=== PATIENT | female | born 1970 | race Caucasian/White ===

== ENCOUNTER 2016-08-01 07:35 | Emergency (ER) | payer SELFPAY ==
[2016-08-01] MEDS ORDERED: cefTRIAXone\\ROCEPHIN 1 GM VIAL ONE (08:04)
[2016-08-01] MEDS ORDERED: Lidocaine 1% 20 ML MDV ONE (08:04)
== END 2016-08-01 08:10 | disposition home or self-care (01) ==
LOC: NAV ERS 07:35
DX: J20.9 Acute bronchitis, unspecified (principal); F31.9 Bipolar disorder, unspecified; F17.210 Nicotine dependence, cigarettes, uncomplicated; Z79.891 Long term (current) use of opiate analgesic; Z79.899 Other long term (current) drug therapy
CPT/HCPCS: 96372; J0696; J2001

== ENCOUNTER 2016-10-01 12:29 | Emergency (ER) | payer SELFPAY ==
[2016-10-01] MEDS ORDERED: Ondansetron ODT 4 MG TAB ONE (13:00)
[2016-10-01] MEDS ORDERED: Cephalexin 250 MG CAP ONE (13:00)
== END 2016-10-01 13:28 | disposition home or self-care (01) ==
LOC: NAV ERS 12:29
DX: T63.461A Toxic effect of venom of wasps, accidental (unintentional), initial encounter (principal); L03.115 Cellulitis of right lower limb; M19.90 Unspecified osteoarthritis, unspecified site; F31.9 Bipolar disorder, unspecified; F17.210 Nicotine dependence, cigarettes, uncomplicated; Z79.899 Other long term (current) drug therapy
CPT/HCPCS: 99282; Q0162

== ENCOUNTER 2017-05-20 19:41 | Emergency (ER) | payer SELFPAY ==
[2017-05-20] MEDS ORDERED: HYDROcodone/Acetaminophen 10/325 mg Tablet ONE (19:57)
[2017-05-20] MEDS ORDERED: Amoxicillin/Potassium Clav 875 MG TAB ONE (19:57)
== END 2017-05-20 20:05 | disposition home or self-care (01) ==
LOC: NAV ERS 19:41
DX: K02.9 Dental caries, unspecified (principal); M19.90 Unspecified osteoarthritis, unspecified site; F31.9 Bipolar disorder, unspecified; F17.210 Nicotine dependence, cigarettes, uncomplicated; Z79.899 Other long term (current) drug therapy
CPT/HCPCS: 99283

== ENCOUNTER 2018-01-24 11:03 | Emergency (ER) | payer SELFPAY ==
[2018-01-24] MEDS ORDERED: Dexamethasone 20 MG/5 ML VIAL ONE (11:53)
== END 2018-01-24 12:16 | disposition home or self-care (01) ==
LOC: NAV ERS 11:03
DX: J20.9 Acute bronchitis, unspecified (principal); M19.90 Unspecified osteoarthritis, unspecified site; F31.9 Bipolar disorder, unspecified; F17.210 Nicotine dependence, cigarettes, uncomplicated; Z79.899 Other long term (current) drug therapy
CPT/HCPCS: 87804; 93005; 96372; J1100

== ENCOUNTER 2018-04-17 11:43 | Emergency (ER) | payer SELFPAY ==
[2018-04-17] MEDS ORDERED: Ketorolac Tromethamine 60 MG/2 ML VIAL ONE (12:14)
--- NOTE | 2018-04-17 12:59 | RAD ---
RIGHT FOREARM 2 VIEWS: INDICATION: Arm pain. COMPARISON: None. FINDINGS: No acute fracture or subluxation is evident. IMPRESSION: No acute osseous abnormality. POS: MICHELLE
--- NOTE | 2018-04-17 12:59 | RAD ---
RIGHT WRIST 3 VIEWS: INDICATION: Right arm pain. COMPARISON: None. FINDINGS: No acute fracture or subluxation is evident. IMPRESSION: No acute osseous abnormality. POS: PROSPER
== END 2018-04-17 12:50 | disposition home or self-care (01) ==
LOC: NAV ERS 11:43
DX: S60.211A Contusion of right wrist, initial encounter (principal); F31.9 Bipolar disorder, unspecified; F17.210 Nicotine dependence, cigarettes, uncomplicated; Z79.899 Other long term (current) drug therapy; W20.8XXA Other cause of strike by thrown, projected or falling object, initial encounter
CPT/HCPCS: 96372; J1885

== ENCOUNTER 2018-08-24 22:25 | Emergency (ER) | payer SELFPAY ==
[2018-08-24] MEDS ORDERED: Ketorolac Tromethamine 30 MG/ML VIAL ONE (23:05)
[2018-08-24] MEDS ORDERED: Sodium Chloride 0.9% 1,000 ML ONE (23:05)
[2018-08-24] MEDS ORDERED: Cyclobenzaprine 10 MG TAB ONE (23:16)
[2018-08-24 23:28] LABS: Hemoglobin 16.7 g/dL (12.0-16.0); Lymphocytes 55 % (21-51); MDiff Complete? YES; Mean Corpuscular Hemoglobin 28.5 pg (27.0-31.0); Mean Platelet Volume 7.4 fL (7.4-10.4); Monocytes 6 % (0-10); Neutrophil 39 % (42-75); Platelet Count 278 thou/uL (130-400); Platelet Morphology Comment Appears Adequate; RBC Distribution Width 12.6 % (11.5-14.5); RBC Morphology Normal; Red Blood Cell (RBC) Count 5.86 mill/uL (4.20-5.40)
[2018-08-24 23:34] LABS: Anion Gap 19 mmol/L (10-20); BUN (Urea Nitrogen) 8 mg/dL (7.0-18.7); Calc. Creatinine Clearance 0 mL/min (70-130); Calcium 10.4 mg/dL (7.8-10.44); Carbon Dioxide 25 mmol/L (22-29); Chloride 97 mmol/L (98-107); Estimated GFR-MDRD 85; Glucose 98 mg/dL (70-105); Potassium 4.4 mmol/L (3.5-5.1); Sodium 137 mmol/L (136-145)
--- NOTE | 2018-08-25 07:41 | CT ---
PRELIMINARY REPORT/[facility]/EMERGENCY AFTER HOURS PROCEDURE: EXAM: CT Head Without Contrast EXAM DATE/TIME: 08/25/2018 12:11 AM CLINICAL HISTORY: 48 years old, female; Headache; Migraine; Aura effect not specified; Does not respond to medication; Severity not specified; Patient HX: Head and neck pain TECHNIQUE: Imaging protocol: Axial computed tomography images of the head without contrast. Radiation optimization: All CT scans at this facility use at least one of these dose optimization techniques: automated exposure control; mA and/or kV adjustment per patient size (includes targeted exams where dose is matched to clinical indication); or iterative reconstruction. COMPARISON: No relevant prior studies available. FINDINGS: Brain: No acute intracranial hemorrhage or mass effect. No definite acute infarct by CT. Ventricles: Ventricle size is normal for age. Bones/joints: No definite acute skull fracture. Sinuses: Included paranasal sinuses are essentially clear. Mastoid air cells: No significant acute finding. IMPRESSION: No acute intracranial bleed or mass effect. Thank you for allowing us to participate in the care of your patient. Dictated and Authenticated by: Jacinto Griffiths MD 08/25/2018 1:37 AM Central Time ([place] & [place]) FINAL REPORT CT Brain WO Con History: [Headache] Comparison: CT brain 2006 Findings/Impression: Concordant with the preliminary report. Transcribed Date/Time: 08/25/2018 7:55 AM
--- NOTE | 2018-08-25 07:44 | CT ---
PRELIMINARY REPORT/[facility]/EMERGENCY AFTER HOURS PROCEDURE: EXAM: CT Cervical Spine Without Contrast EXAM DATE/TIME: 08/25/2018 12:17 AM CLINICAL HISTORY: 48 years old, female; Neck pain; Patient HX: Pain and lymph node swelling TECHNIQUE: Imaging protocol: Axial computed tomography images of the cervical spine without contrast. Coronal and sagittal reformatted images were created and reviewed. Radiation optimization: All CT scans at this facility use at least one of these dose optimization techniques: automated exposure control; mA and/or kV adjustment per patient size (includes targeted exams where dose is matched to clinical indication); or iterative reconstruction. COMPARISON: No relevant prior studies available. FINDINGS: Vertebrae: On axial CT images, no definite acute fracture is visible. Sagittal and coronal reconstructions show no fracture or subluxation. Mild to moderate degenerative disc changes and facet joint arthritis at several levels. 5 mm sclerotic area in the T3 vertebral body, possibly a small bone island. Discs/Spinal canal/Neural foramina: No definite/significant disc herniation by CT, MRI could be more sensitive if clinically indicated. Lymph nodes: Several borderline to mildly prominent cervical lymph nodes bilaterally, and in the upper mediastinum. Lungs: Lung apices appear essentially unremarkable. IMPRESSION: 1. No definite acute fracture or subluxation by CT. 2. Other findings discussed above. Thank you for allowing us to participate in the care of your patient. Dictated and Authenticated by: Jacinto Griffiths MD 08/25/2018 1:44 AM Central Time ([place] & [place]) FINAL REPORT CT Cervical Spine WO Con History: [Headache. Swelling.] Comparison: None. Findings/Impression: Concordant with the preliminary report. Workup for lymphoproliferative disorder recommended. Transcribed Date/Time: 08/25/2018 8:00 AM
== END 2018-08-25 02:13 | disposition home or self-care (01) ==
LOC: NAV ERS 22:25
DX: M51.34 Other intervertebral disc degeneration, thoracic region (principal); R59.0 Localized enlarged lymph nodes; M19.90 Unspecified osteoarthritis, unspecified site; F17.210 Nicotine dependence, cigarettes, uncomplicated; F31.9 Bipolar disorder, unspecified; Z79.899 Other long term (current) drug therapy
CPT/HCPCS: 36415; 70450; 72125; 80048; 85025; 96361; 96374; J1885; J7050

== ENCOUNTER 2019-09-15 12:42 | Emergency (ER) | payer SELFPAY ==
[2019-09-15] MEDS ORDERED: traMADol HCl 50 MG TAB ONE (13:56)
[2019-09-15] MEDS ORDERED: Orphenadrine Citrate 60 MG/2 ML VIAL ONE (14:05)
== END 2019-09-15 14:20 | disposition home or self-care (01) ==
LOC: NAV ERS 12:42
DX: M54.41 Lumbago with sciatica, right side (principal); M19.90 Unspecified osteoarthritis, unspecified site; F31.9 Bipolar disorder, unspecified; F17.210 Nicotine dependence, cigarettes, uncomplicated; Z79.899 Other long term (current) drug therapy
CPT/HCPCS: 96372; 99283; J2360

== ENCOUNTER 2020-04-04 11:01 | Emergency (ER) | payer SELFPAY ==
--- NOTE | 2020-04-04 12:53 | RAD ---
EXAM: CHEST ONE VIEW HISTORY: Cough. COMPARISON: 12/02/2014 FINDINGS: The cardiac silhouette and pulmonary vasculature are within normal limits. Linear densities are seen at the left lung base likely due to mild atelectasis. Lungs are otherwise clear. No interval change from prior study IMPRESSION: No acute cardiopulmonary process.
[2020-04-05 18:25] LABS: SARS-CoV-2 PCR by NAA Not Detected (NotDetected)
== END 2020-04-04 13:02 | disposition home or self-care (01) ==
LOC: NAV ERS 11:01
DX: B34.9 Viral infection, unspecified (principal); Z20.822 Contact with and (suspected) exposure to COVID-19; F17.210 Nicotine dependence, cigarettes, uncomplicated; Z79.899 Other long term (current) drug therapy
CPT/HCPCS: 71045; 87635; U0003; U0005

== ENCOUNTER 2020-11-09 14:22 | Emergency (ER) | payer OTHER, SELFPAY ==
[2020-11-09] MEDS ORDERED: Doxycycline 100 MG CAP ONE (16:22)
[2020-11-09] MEDS ORDERED: predniSONE 20 MG TAB ONE (16:22)
[2020-11-10 13:32] LABS: SARS-CoV-2 PCR by NAA Not Detected (NotDetected)
== END 2020-11-09 16:38 | disposition home or self-care (01) ==
LOC: NAV ERS 14:22
DX: J20.9 Acute bronchitis, unspecified (principal); F17.210 Nicotine dependence, cigarettes, uncomplicated; Z20.822 Contact with and (suspected) exposure to COVID-19
CPT/HCPCS: 71045; J7512; U0003; U0005

== ENCOUNTER 2021-03-31 23:28 | Emergency (ER) | payer SELFPAY ==
[2021-04-01] MEDS ORDERED: Dexamethasone 20 MG/5 ML VIAL ONE (00:07)
[2021-04-01] MEDS ORDERED: Ventolin HFA Inhaler 60 PUFF INHALER ONE (00:07)
[2021-04-01 18:34] LABS: SARS-CoV-2 PCR by NAA Not Detected (NotDetected)
== END 2021-04-01 00:30 | disposition home or self-care (01) ==
LOC: NAV ERS 23:28
DX: J06.9 Acute upper respiratory infection, unspecified (principal); Z20.822 Contact with and (suspected) exposure to COVID-19; M19.90 Unspecified osteoarthritis, unspecified site; F17.210 Nicotine dependence, cigarettes, uncomplicated
CPT/HCPCS: J1100; U0003; U0005